=== PATIENT | male | born 1950 | race Caucasian/White ===

== ENCOUNTER 2018-09-14 09:23 | Emergency (ER) | payer MEDICARE, OTHER ==
[2018-09-14] MEDS ORDERED: NS(*) 0.9% 500 ML BAG 500 ML IV ONE (09:28)
--- NOTE | 2018-09-14 09:28 | ER Report ---
History and Physical Time Seen By MD: 09:24 HPI/ROS CHIEF COMPLAINT: Shortness breath HISTORY OF PRESENT ILLNESS: Patient is a 68-year-old male here with complaints of shortness breath, chest tightness since yesterday afternoon. Patient does packer ve history of smoking, reports increased difficulty breathing. Patient also does have a history significant for pulmonary emboli currently on Xarelto. Patient is afebrile, hemodynamically stable at time of evaluation. Patient is maintaining oxygen saturations greater than 92% on room air. REVIEW OF SYSTEMS: Constitutional: No fever, no chills. Eyes: No discharge. ENT: No sore throat. Cardiovascular: + chest tightness, no palpitations. Respiratory: No cough, + shortness of breath. Gastrointestinal: No abdominal pain, no vomiting. Genitourinary: No hematuria. Musculoskeletal: No back pain. Skin: No rashes. Neurological: No headache. Allergies: Coded Allergies: Sulfa (Sulfonamide Antibiotics) (Verified Allergy, Unknown, 09/14/18) prednisone (Verified Allergy, Unknown, 09/14/18) Constitutional Vital Sign - Last 24 Hours 09/14/18 09/14/18 09/14/18 09/14/18 09:25 09:30 09:45 09:45 Pulse 79 72 70 69 Resp 18 20 11 16 B/P (MAP) 176/106 157/96 (116) Pulse Ox 90 92 97 O2 Delivery Room Air 09/14/18 09/14/18 09/14/18 09/14/18 09:45 10:00 10:15 10:30 Pulse 64 64 Resp 12 10 10 B/P (MAP) 149/94 (112) 142/88 (106) Pulse Ox 88 97 98 97 O2 Delivery Room Air 09/14/18 09/14/18 09/14/18 09/14/18 10:40 11:05 11:15 11:30 Pulse 67 73 73 Resp 16 16 12 B/P (MAP) 144/87 (106) Pulse Ox 88 86 Physical Exam General Appearance: The patient is alert, has no immediate need for airway protection and no signs of toxicity. NAD Eyes: Pupils equal and round no pallor or injection. ENT, Mouth: Mucous membranes are moist. Respiratory: There are no retractions, lungs are clear to auscultation. Cardiovascular: Regular rate and rhythm. Gastrointestinal: Abdomen is soft and non tender, no masses, bowel sounds normal. Neurological: No focal neuro deficits Skin: Warm and dry, no rashes. Musculoskeletal: Neck is supple non tender. Extremities are nontender, nonswollen and have full range of motion. DIFFERENTIAL DIAGNOSIS: After history and physical exam differential diagnosis was considered for shortness of breath including but not limited to pulmonary infectious process, COPD, asthma, pulmonary embolus and congestive heart failure. Medical Decision Making Data Points Result Diagram: 09/14/18 0935 09/14/18 0935 Laboratory Hematology Test 09/14/18 09:35 White Blood Count 13.5 k/uL (4.5-11.0) H Red Blood Count 5.39 M/uL (4.00-5.60) Hemoglobin 16.3 g/dL (14.0-18.0) Hematocrit 47.9 % (42.0-52.0) Mean Corpuscular Volume 89.0 fL (80.0-96.0) Mean Corpuscular Hemoglobin 30.2 pg (26.0-33.0) Mean Corpuscular Hemoglobin Concent 33.9 g/dL (32.0-36.0) Red Cell Distribution Width 14.1 % (11.5-14.5) Platelet Count 354 K/uL (150-450) Mean Platelet Volume 7.8 fL (7.2-11.1) Neutrophils (%) (Auto) 79.1 % (39.4-72.5) H Lymphocytes (%) (Auto) 8.9 % (17.6-49.6) L Monocytes (%) (Auto) 8.5 % (4.1-12.4) Eosinophils (%) (Auto) 2.6 % (0.4-6.7) Basophils (%) (Auto) 0.9 % (0.3-1.4) Nucleated RBC Relative Count (auto) 0.1 /100WBC Neutrophils # (Auto) 10.6 K/uL (2.0-7.4) H Lymphocytes # (Auto) 1.2 K/uL (1.3-3.6) L Monocytes # (Auto) 1.1 K/uL (0.3-1.0) H Eosinophils # (Auto) 0.4 K/uL (0.0-0.5) Basophils # (Auto) 0.1 K/uL (0.0-0.1) Nucleated RBC Absolute Count (auto) 0.01 K/uL Peripheral Blood Smear Yes Y/N Chemistry Test 09/14/18 09:35 Sodium Level 136 mmol/L (137-145) Potassium Level 4.5 mmol/L (3.5-5.0) Chloride Level 101 mmol/L (98-107) Carbon Dioxide Level 22 mmol/L (22-30) Blood Urea Nitrogen 17 mg/dl (9-21) Creatinine 1.10 mg/dl (0.66-1.25) Glomerular Filtration Rate Calc > 60.0 Random Glucose 171 mg/dl (75-110) Calcium Level 10.2 mg/dl (8.4-10.2) Total Bilirubin 1.2 mg/dl (0.2-1.3) Aspartate Amino Transf (AST/SGOT) 32 U/L (0-35) Alanine Aminotransferase (ALT/SGPT) 54 U/L (0-56) Alkaline Phosphatase 71 U/L (0-126) Troponin I < 0.012 ng/ml B-Type Natriuretic Peptide 31 pg/ml (0-100) Total Protein 7.9 g/dl (6.3-8.2) Albumin 4.4 g/dl (3.5-5.0) Coagulation Test 09/14/18 09:35 Prothrombin Time 15.2 seconds (12.0-14.4) Prothromb Time International Ratio 1.20 Activated Partial Thromboplast Time 34 seconds (23-35) EKG/Imaging EKG Interpretation PATIENT NAME: EITAN LADD : [id number] MR: [id number] V: [id number] EXAM DATE: ORDERING PHYSICIAN: AIYANA COLE TECHNOLOGIST: Test Reason : Blood Pressure : / mmHG Vent. Rate : 070 BPM Atrial Rate : 070 BPM P-R Int : 160 ms QRS Dur : 092 ms QT Int : 376 ms P-R-T Axes : 048 010 033 degrees QTc Int : 406 ms Normal sinus rhythm Normal ECG No previous ECGs available Referred By: Confirmed By: 0 T: Imaging PATIENT NAME: Eitan Ladd : 1950 MR: [id number] V: [id number] EXAM DATE: ORDERING PHYSICIAN: AIYANA COLE TECHNOLOGIST: Location: [facility] Patient: Eitan Ladd : 1950 Visit/Account:[id number] Date of Sevice: 09/14/2018 CT CTA CHEST W & W/O CON HISTORY: Respiratory distress, history of blood clots ADDITIONAL HISTORY: The patient was extremely clustered probe again would only enter the scanner laying in a prone position TECHNIQUE: CTA chest with intravenous contrast. Axial imaging acquired following administration of IV contrast timed for maximum opacification of the pulmonary arterial vasculature. Slab 3-D MIP reconstructed images were also created for further evaluation and interpretation. Reconstruction of the source data set includes multiplanar 2-D in the sagittal and coronal planes and 3-D reconstructed coronal slab MIP series. 3-D images were created by the t echnologist.Dose Lowering Technique One of the following dose optimization techniques was utilized in the performance of this exam: Automated exposure control; adjustment of the mA and/or kV according to the patient's size; or use of an iterative reconstruction technique. Specific details can be referenced in the facility's radiology CT exam operational policy. CONTRAST: 75 mL Isovue-370 COMPARISON: None. FINDINGS: Lungs/pleura: Small amount linear stranding in the medial inferior upper lobes and anterior left lower lobe may represent scarring versus a small amount of atelectasis. This calcified granuloma in the left lower lobe Heart/vessels: There mild coronary artery calcifications. There is no evidence of pulmonary emboli Mediastinum/lymph nodes: There is a 1.1 x 1 cm right hilar lymph node in addition to smaller right hilar pretracheal and subcarinal and AP window lymph nodes. Visualized upper abdomen: There is diffuse hepatic steatosis. This mild thick ening of both adrenal glands. There is a small hiatal hernia Bones/soft tissues: There is a fat-containing mass in the right infraspinatus muscle Additional findings: None IMPRESSION: No evidence of pulmonary emboli Small shotty mediastinal lymph nodes Diffuse hepatic steatosis Small amount linear stranding in the medial inferior upper lobes and anterior left lower lobe which may represent scarring versus a small amount of atelectasis Mild coronary artery calcifications Fat-containing mass in the right infraspinatus muscle Report Dictated By: Tarsha Gage MD at 09/14/2018 11:12 AM Report E-Signed By: Tarsha Gage MD at 09/14/2018 11:23 AM WSN:[email or web address] ED Course/Re-evaluation ED Course Patient is a 68-year-old male here with complaints of shortness breath, history of pulmonary embolism on anticoagulation. Troponin was found to be negative. Due to the patient's history, CT pulmonary angiogram was completed and was negative for pulmonary embolism. Labs were remarkable for mild elevation of white blood cell count to 13, mild lymphadenopathy on CT imaging status post antimicrobial treatment course. I discussed results patient. Patient was given DuoNeb, methylprednisolone with moderate improvement in symptoms. Will send on a course of medrol dospack Recommend close PCP follow-up. Return precautions provided. Patient was hemodynamically stable throughout course. Decision to Disposition Date: Sep 14, 2018 Decision to Disposition Time: 11:40 Depart Departure Latest Vital Signs Vital Signs Date Time Temp Pulse Resp B/P (MAP) Pulse Ox O2 Delivery O2 Flow Rate FiO2 09/14/18 11:30 73 12 86 09/14/18 11:05 144/87 (106) 09/14/18 09:45 Room Air Impression: Primary Impression: Shortness of breath Condition: Improved Disposition: HOME OR SELF-CARE New Scripts Methylprednisolone (METHYLPREDNISOLONE) 4 Mg Tab.ds.pk 4 MG PO DIRECTED, #1 PACK Prov: AIYANA COLE DO 09/14/18 Patient Instructions: Dyspnea (GEN) Additional Instructions: Please drink plenty of water. Your CT scan showed no signs of pulmonary embolism. Please return promptly if you develop increasing shortness breath, fevers, chills, chest pains. Please follow up closely with her primary care provider. Please complete her dosepak as prescribed AIYANA COLE DO Sep 14, 2018 09:28
--- NOTE | 2018-09-14 09:35 | EKG ---
FACILITY: [facility] PATIENT NAME: HERNANDO CARDOZA : [id number] MR: [id number] V: [id number] EXAM DATE: ORDERING PHYSICIAN: AIYANA COLE TECHNOLOGIST: Test Reason : Blood Pressure : / mmHG Vent. Rate : 070 BPM Atrial Rate : 070 BPM P-R Int : 160 ms QRS Dur : 092 ms QT Int : 376 ms P-R-T Axes : 048 010 033 degrees QTc Int : 406 ms Normal sinus rhythm T inversion consistent with ant/sep ischemia vs normal variant No previous ECGs available Confirmed by JUSTIN ENNIS ([id number]) on 09/14/2018 2:18:09 PM Referred By: Confirmed By:JUSTIN ENNIS
[2018-09-14] MEDS: ALBUTEROL/IPRATROPIUM 3 ML NEB NEB SCH ×3 (09:44→09:47)
[2018-09-14] MEDS ORDERED: methylPREDNIS SUCC 125 MG/2ML IVP ONE (09:50)
[2018-09-14] MEDS ORDERED: IOPAMIDOL 76% 100 ML INFUS BTL 100 ML ONE (09:51)
[2018-09-14] MEDS ORDERED: NS(*) 0.9% 50 ML BAG 50 ML ONE (09:51)
[2018-09-14 10:09] LABS: PLATELET COUNT, AUTOMATED 354 K/uL (150-450)
[2018-09-14 10:31] LABS: INR 1.2
--- NOTE | 2018-09-14 11:31 | RADIOLOGY IMAGING REPORT ---
FACILITY: [facility] PATIENT NAME: Eitan Ladd : 1950 MR: [id number] V: [id number] EXAM DATE: ORDERING PHYSICIAN: AIYANA COLE TECHNOLOGIST: Location: [facility] Patient: Eitan Ladd : 1950 Visit/Account:[id number] Date of Sevice: 09/14/2018 CT CTA CHEST W & W/O CON HISTORY: Respiratory distress, history of blood clots ADDITIONAL HISTORY: The patient was extremely clustered probe again would only enter the scanner lay ing in a prone position TECHNIQUE: CTA chest with intravenous contrast. Axial imaging acquired following administration of IV contrast timed for maximum opacification of the pulmonary arterial vasculature. Slab 3-D MIP daisy nstructed images were also created for further evaluation and interpretation. Reconstruction of the [facility] data set includes multiplanar 2-D in the sagittal and coronal planes and 3-D reconstructed amanuel nal slab MIP series. 3-D images were created by the technologist.Dose Lowering Technique One of the following dose optimization techniques was utilized in the performance of this exam: Autom ated exposure control; adjustment of the mA and/or kV according to the patient's size; or use of an i terative reconstruction technique. Specific details can be referenced in the facility's radiology C T exam operational policy. CONTRAST: 75 mL Isovue-370 COMPARISON: None. FINDINGS: Lungs/pleura: Small amount linear stranding in the medial inferior upper lobes and anterior left low er lobe may represent scarring versus a small amount of atelectasis. This calcified granuloma in the left lower lobe Heart/vessels: There mild coronary artery calcifications. There is no evidence of pulmonary emboli Mediastinum/lymph nodes: There is a 1.1 x 1 cm right hilar lymph node in addition to smaller right h ilar pretracheal and subcarinal and AP window lymph nodes. Visualized upper abdomen: There is diffuse hepatic steatosis. This mild thickening of both adrenal glands. There is a small hiatal hernia Bones/soft tissues: There is a fat-containing mass in the right infraspinatus muscle Additional findings: None IMPRESSION: No evidence of pulmonary emboli Small shotty mediastinal lymph nodes Diffuse hepatic steatosis Small amount linear stranding in the medial inferior upper lobes and anterior left lower lobe which m ay represent scarring versus a small amount of atelectasis Mild coronary artery calcifications Fat-containing mass in the right infraspinatus muscle Report Dictated By: Tarsha Gage MD at 09/14/2018 11:12 AM Report E-Signed By: Tarsha Gage MD at 09/14/2018 11:23 AM WSN:[email or web address]
[2018-09-14] MEDS ORDERED: METH4TAB66 PO (11:48)
[2018-09-14 11:53] VITALS: BP 127/80
== END 2018-09-14 12:00 | disposition home or self-care (01) ==
LOC: ER 09:31
DX: R06.02 Shortness of breath (principal); Z86.711 Personal history of pulmonary embolism; Z79.01 Long term (current) use of anticoagulants
CPT/HCPCS: 71275; 82803; 83880; 84484; 85025; 85610; 85730; 93005; 94644; 96361; 96374; 99284; J2930; J7040; J7050; J7620; Q9967; 82040; 82247; 82310; 82374; 82435; 82565; 82947; 84075; 84132; 84155; 84295; 84450; 84460; 84520